=== PATIENT | female | born 1955 ===

== ENCOUNTER 2018-12-31 09:52 | Day surgery (SDC) | payer OTHER ==
[2018-12-31] MEDS ORDERED: Lactated Ringer's 500 ML IV ONE ×2 (11:51)
[2018-12-31] MEDS ORDERED: Propofol 10 mg/ml Inj (20 ML) ONE (12:22)
[2018-12-31] MEDS ORDERED: Lidocaine Hydrochloride 5 ML INJ ONE (12:22)
[2018-12-31 12:25] VITALS: O2SAT 100
[2018-12-31 14:24] VITALS: TEMP 96.8
[2018-12-31 14:30] VITALS: BP 128/52; PULSE 60; RESP 17
== END 2018-12-31 14:25 | disposition home or self-care (01) ==
LOC: C.ENDO 09:52
PROVIDERS: ATTEND Internal Medicine Gastroenterology
DX: K29.50 Unspecified chronic gastritis without bleeding (principal); K21.0 Gastro-esophageal reflux disease with esophagitis; R10.13 Epigastric pain; R11.0 Nausea; E11.9 Type 2 diabetes mellitus without complications; E03.9 Hypothyroidism, unspecified
CPT/HCPCS: 43239; 82948; 88305; 88312; 88313; 88342; J2704; J7120